=== PATIENT | male | born 1995 | race Caucasian/White ===

== ENCOUNTER 2021-03-26 12:17 | Emergency (ER) | payer SELFPAY ==
--- NOTE | ~2021-03-26 | CT_ITS ---
EXAMINATION: CT brain wo con, CT facial bones wo con DATE: 03/26/2021 13:16 INDICATION: Fall with syncope and facial injury with lip laceration. TECHNIQUE: 1. Computed tomography (CT) of the head was performed without intravenous contrast. Sagittal and lizbeth nal reconstructions were obtained. The mA was adjusted according to patient size. Iterative reconstru ction technique was employed. The dose-length product was 605.33 mGy-cm. 2. CT of the facial bones and maxillofacial region was performed without intravenous contrast. Sagitt al and coronal reconstructions were obtained. Automated exposure control and iterative reconstruction technique were employed. The dose-length product was 273.77 mGy-cm. COMPARISON: None. FINDINGS: Head CT: No calvarial fracture. No acute intracranial hemorrhage, acute infarction or abnormal extra axial flu id collection. Ventricles are normal and symmetric. No mass/mass effect. Minimal right mastoid effusi on. Maxillofacial CT: No maxillofacial fractures identified. Specifically the nasal bones, mayberry of the orbits and paranasa l sinuses, zygomatic arches, mandible and pterygoid plates are normal. Normal alignment at the bilate ral temporomandibular joints. Slight S-shaped undulation of the nasal septum on the coronal plane whi ch parallels the contours of the turbinates without evident fracture. Small mucous retention cyst at the superior right maxillary sinus and mild mucosal thickening the right ethmoid sinus. The right ost iomeatal unit is occluded. There are multiple dental caries including large dental caries involving t he middle molars bilaterally at the mandible and maxilla, each with varying degrees of surrounding pe riapical lucency. There are several additional smaller dental caries. Soft tissue swelling with subcu taneous edema anterior to the chin. IMPRESSION: 1. Normal brain. No calvarial fracture or acute intracranial process. 2. No maxillofacial fractures. 3. Extensive dental disease with erosions involving large portions of the middle molars bilaterally a t the mandible and maxilla, each with periapical lucencies. Consider dental referral. Reviewed, dictated and finalized at location A. IMPRESSION: 1. Normal brain. No calvarial fracture or acute intracranial process. 2. No maxillofacial fractures. 3. Extensive dental disease with erosions involving large portions of the middl e molars bilaterally at the mandible and maxilla, each with periapical lucencie s. Consider dental referral.
[2021-03-26 12:23] VITALS: BP 146/64; PULSE 50; RESP 16; TEMP 36.6; O2SAT 98
--- NOTE | 2021-03-26 12:38 | ECG_ITS ---
Measurements Intervals [place] Rate: 56 P: 53 MN: 144 QRS: 75 QRSD: 105 T: 39 QT: 398 QTc: 387 Interpretive Statements SINUS BRADYCARDIA WITH SINUS ARRHYTHMIA NONSPECIFIC ST ELEVATION IN ANTERIOR LEADS BORDERLINE ECG Electronically Signed On 03-26-2021 13:01:20 CDT by Rubén Delatorre D.O.
--- NOTE | 2021-03-26 13:07 | ED.SYNCOPE ---
HPI - Syncope General Chief Complaint: Syncope Stated Complaint: chest pain after drinking coke, fell down Time Seen by Provider: 03/26/21 12:40 Source: patient and RN notes reviewed Mode of arrival: ambulatory Limitations: no limitations History of Present Illness HPI narrative: This is a 25 year old male who presents for evaluation of a syncopal episode. Patient was at work when he had a syncopal episode. He states he was drinking a cold soda when he felt a sharp pain in middle of chest. He developed nausea, lightheadedness with clamminess so he sat down in a chair. He states he woke up on the floor. He reports left facial soreness and bruising to his left eye from fall. He reports he feels better now. He denies previous history of syncope. He denies blurred vision. Related Data Allergies Allergy/AdvReac Type Severity Reaction Status Date / Time No Known Allergies Allergy Unknown Verified 03/26/21 12:35 Review of Systems Review of Systems: All systems reviewed & are unremarkable except as noted in HPI and below PMFSH Past Medical History Medical History (Updated 03/27/21 @ 00:00 by Tanna Chan) Patient denies medical problems Surgical History Surgical History (Updated 03/26/21 @ 13:11 by Sabina Haque MD) No pertinent past surgical history Family History Family History (Updated 03/26/21 @ 13:11 by Sabina Haque MD) Other Diabetes mellitus Social History Social History (Updated 03/26/21 @ 13:11 by Sabina Haque MD) Smoking status: Never smoker Substance use type: marijuana Other substance usage details: daily Exam Const: General: no acute distress and alert Orientation/consciousness: patient oriented x3 HENMT: Head: normocephalic Ears: TM's normal bilaterally Face and sinus: face symmetric Mouth: Yes Normal oral and palatal mucosa present, Yes oropharynx normal, Yes moist mucous membranes and Yes lip abnormal (left upper lip swelling) Teeth and gingiva: dentition normal Throat: posterior oropharynx normal, tonsils normal and uvula midline Eyes: Pupils: Equal, round and reactive pupils present EOM: EOMs intact bilaterally Other: left periorbital ecchymosis Neck: Neck: normal visual inspection Chest: Chest palpation & inspection: normal inspection of the chest Resp: Effort & Inspection: normal respiratory effort and no retractions Auscultation: clear to auscultation bilaterally Cardio: Rate: regular rate Rhythm: regular rhythm Heart sounds: no murmurs GI: GI Palp: Yes Soft to palpation, No Tenderness to palpation present (GI) and No Guarding due to palpation present (GI) Auscultation: normal bowel sounds Skin: General skin exam: normal color Rashes: no rashes Neuro: General: patient oriented x3, moves all extremities and CN's II-XI intact bilaterally Psych: Mental Status: mental status grossly normal Affect: normal affect Course Reevaluation(s) Reevaluation #1: I Discussed with patient and his mother patient appeared to have vasovagal reaction. HE also had an episode in ED during blood draw. He did not completely pass out. He was informed of dental disease on CT Date: 03/26/21 Time: 15:30 Vital Signs Vital signs: Vital Signs Temperature 97.9 F 03/26/21 12:23 Pulse Rate 50 L 03/26/21 12:23 Respiratory Rate 16 03/26/21 12:23 Blood Pressure 146/64 H 03/26/21 12:23 Pulse Oximetry 98 03/26/21 12:23 Temperature 97.9 F 03/26/21 12:23 Pulse Rate 57 L 03/26/21 14:00 Respiratory Rate 18 03/26/21 14:00 Blood Pressure 121/77 03/26/21 14:00 Pulse Oximetry 99 03/26/21 14:00 MDM - Syncope Lab Data Attestation: I reviewed the patient's lab results. Result diagrams: 03/26/21 13:35 03/26/21 13:35 Labs: Lab Results 03/26/21 03/26/21 03/26/21 Range/Units 13:35 13:35 13:35 WBC 11.5 H (4.5-10.0) K/mm3 RBC 4.50 L (4.6-6.20) M/mm3 Hgb 13.3 L (14.0-18.0) g/dL Hc
[2021-03-26 13:50] LABS: Basophils Percent Auto 0.3 % (0.2-1.2); Eosinophils Absolute Auto 0.1 K/mm3 (0-0.3); Eosinophils Percent Auto 0.4 % (0-4.4); Hematocrit 39.3 % (42.0-52.0); Hemoglobin 13.3 g/dL (14.0-18.0); Immature Granulocyte Absolute 0.03 K/mm3 (0.00-0.031); Immature Granulocyte Percent A 0.3 % (0-0.5); Lymphocytes Absolute Auto 1.73 K/mm3 (0.9-3.2); Lymphocytes Percent Auto 15.1 % (18.3-44.2); Mean Corpuscular HGB Conc 33.8 g/dl (32-36); Mean Corpuscular Hemoglobin 29.6 pg (26-34); Mean Corpuscular Volume 87.3 fl (80-100); Mean Platelet Volume 9.1 fl (7.4-10.4); Monocytes Absolute Auto 0.7 K/mm3 (0.1-0.6); Monocytes Percent Auto 6.5 % (2.6-8.5); Neutrophils Absolute Auto 8.9 K/mm3 (1.3-6.7); Neutrophils Percent Auto 77.4 % (45.5-73.1); Platelet Count Result 357 k/mm3 (150-375); Red Cell Distribution Width 12.1 % (11.5-14.5); White Blood Count 11.5 K/mm3 (4.5-10.0)
[2021-03-26 13:57] LABS: Alanine Aminotransferase 22 U/L (4-50); Albumin Level 4.7 g/dL (3.5-5.1); Alkaline Phosphatase 62 U/L (38-126); Anion Gap 8 mmol/L (8-16); Aspartate Amino Transferase 27 U/L (17-59); Bilirubin,Total 0.5 mg/dL (0.2-1.3); Blood Urea Nitrogen 13 mg/dL (9-20); Carbon Dioxide 28 mmol/L (22-30); Chloride 102 mmol/L (98-107); Estimated CRCL calculation 78 ml/min; Estimated Glomerular Filt Rate > 60; Glucose 94 mg/dL (65-110); Magnesium 1.9 mg/dL (1.6-2.3); Potassium 4.2 mmol/L (3.4-5.0); Sodium 138 mmol/L (137-145)
[2021-03-26 14:00] VITALS: BP 121/77; PULSE 57; RESP 18; O2SAT 99
[2021-03-26 14:08] LABS: Troponin I < 0.012 ng/mL (0.000-0.034)
[2021-03-26 14:46] LABS: Add Urine Microscopic? NO; Appearance Urine Clear (Clear); Bilirubin Urine Negative (Negative); Blood Urine Negative (Negative); Color Urine Yellow (Yellow); Glucose Urine UA Negative (Negative); Ketones Urine Negative (Negative); Leukocyte Esterase Ur Negative LEU/UL (Negative); Nitrate Urine Negative (Negative); Protein Urine Negative (Negative); Specific Grav Ur 1.013 (1.001-1.035); Urobilinogen Urine Negative mg/dL (<2.0)
== END 2021-03-26 15:44 | disposition home or self-care (01) ==
PROVIDERS: Emergency Provider General Practice
DX: R55 Syncope and collapse (principal); S00.83XA Contusion of other part of head, initial encounter; K02.9 Dental caries, unspecified; R00.1 Bradycardia, unspecified; R94.31 Abnormal electrocardiogram [ECG] [EKG]; W07.XXXA Fall from chair, initial encounter
CPT/HCPCS: 36415; 70450; 70486; 80053; 81003; 83735; 84484; 85025; 93005; 99284